=== PATIENT | male | born 1960 | race Caucasian/White ===

== ENCOUNTER 2021-06-24 13:38 | Emergency (ER) | payer OTHER ==
[2021-06-24 14:21] LABS: HEMOGLOBIN 16.6 gm/dl (14.0-17.5); RED BLOOD COUNT 5.34 M/UL (4.20-5.50); WHITE BLOOD COUNT 8.1 K/UL (4.5-11.0)
[2021-06-24 14:51] LABS: BUN/CREATININE RATIO 15 (0-10)
== END 2021-06-24 18:40 | disposition home or self-care (01) ==
LOC: ER1 13:38
PROVIDERS: Emergency Medicine
DX: N17.9 Acute kidney failure, unspecified (principal); K21.9 Gastro-esophageal reflux disease without esophagitis; R53.83 Other fatigue
CPT/HCPCS: 71045; 80053; 82550; 82553; 83874; 84484; 85025; 93005; 99285; J7030